=== PATIENT | female | born 1990 | race Caucasian/White ===

== ENCOUNTER 2016-10-07 20:20 | Emergency (ER) | payer MEDICAID ==
--- NOTE | 2016-10-07 20:33 | ED Physician Chart ---
Chief Complaint/HPI - Patient Information Date Seen:: 10/07/16 Time Seen:: 20:21 Chief Complaint:: knee pain History of Present Illness:: 26-year-old female, otherwise healthy, complains of acute, constant, moderate, aching, worse with movement, nonradiating, 6 out of 10, right knee pain 2 days. Says she feels like it needs to "pop". Denies any injury, fevers, chills , palpitations, chest pain, abdominal pain, nausea, vomiting. Allergies:: Allergies Allergy/AdvReac Type Severity Reaction Status Date / Time No Known Allergies Allergy Verified 04/09/16 09:17 Historian:: Patient Review:: Nurse's Note Reviewed Review of Systems - Review of Systems Other: Complete system review otherwise unremarkable except as noted in history of present illness. Past Medical History - Past Medical History Past Medical History: No significant medical hx Family History: None Social History: Non Smoker, No Alcohol, No Drug Use, Other (lives with family) Surgical History: None Psychiatricy History: None Medication: None Family Medical History - Family Member Mother History Unknown: Yes Ethnicity: Physical Exam - Physical Examination Other:: INITIAL VITAL SIGNS: Reviewed by me GENERAL: Alert and interactive. No acute distress HEAD: Head is normocephalic and atraumatic EYES: EOMI. PERRL. No scleral icterus. No conjunctival injection ENT: Moist mucous membranes. NECK: Supple. No masses. Full range of motion RESPIRATORY: No tachypnea. Clear breath sounds bilaterally. No wheezing, rales, or rhonchi CV: Regular rate and rhythm. No murmurs, rubs, or gallops ABDOMEN: Soft, non-distended, non-tender. No guarding. No rebound. No masses. EXTREMITIES: No deformity. No cyanosis. No edema. Right knee has some limited range of motion on extreme flexion and hyperextension. There is some crepitation on patellar tracking. SKIN: Warm and dry. No obvious rashes. NEUROLOGIC: Alert and oriented. Face is symmetric. Speech is normal. Moves all extremities equally. Motor and sensory distally intact. Labs/Radiology/EKG Results - Radiology Results Results: X-ray right Knee 3V Interpreted by me: Bones: No fracture Joints: No dislocation Foreign body: None ED Septic Shock - . Is Septic Shock (SBP<90, OR Lactate>4 mmol\\L) present?: No Reassessment (Disposition) - Reassessment Reassessment:: Blood pressure was noted to be elevated over 120/80. There were no signs of hypertension. Discussed the findings with the patient and recommended that the patient follow up with the primary care physician regarding the elevated blood pressure. 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 There is crepitation on patellar tracking of the right knee. No acute injury noted. Labs essentially unremarkable. Discussed exercises for strengthening quadriceps. Provided Garth wrap. Found some support relief. Recommend follow- up PCP. Return to ER precautions given. Patient understands and agrees with the plan. Reassessment Condition:: Improved - Diagnosis Diagnosis:: Acute femoral patellar syndrome, right knee Acute urinary tract infection without hematuria Elevated blood pressure without diagnosis of hypertension - Aftercare/Follow up Instructions Aftercare/Follow-Up Instructions:: Counseled pt regarding lab results/diagnosis & need follow up, Refer to Discharge Instructions - Patient Disposition Discharge/Transfer:: Home Condition at Disposition:: Improved ED Discharge Plan - Patient Disposition Admit/Discharge/Transfer: PT DISCHARGED HOME Condition at Disposition: Improved Instructions: Knee Exercises, Generic, SportsMed Additional Instructions: May need MRI if symptoms continue.
[2016-10-07 21:09] LABS: % BASOPHILS 0.3 % (0.0-2.0); % EOSINOPHILS 1.9 % (0.0-5.0); % MONOCYTES 6.9 % (2.0-10.0); % NEUTROPHILS 72.9 % (40.0-80.0); HEMATOCRIT 34.5 % (35.0-45.0); HEMOGLOBIN 11.4 gm/dL (11.7-15.5); MEAN CELL VOLUME 80.3 fl (81-100); MEAN CORPUSCULAR HEMOGLOBIN 26.6 pg (27.0-31.0); MEAN CORPUSCULAR HGB CONC 33.1 pg (28.0-36.0); MEAN PLATELET VOLUME 8.4 fl; NEUTROPHILE ABSOLUTE 9.1 Th/cmm (1.8-8.0); PLATELET COUNT 343 Th/cmm (150-400); RED CELL DISTRIBUTION WIDTH 14.1 % (11.5-20.0)
[2016-10-07 21:14] LABS: WHITE BLOOD COUNT 12.3 Th/cmm (4.8-10.8)
[2016-10-07 21:22] LABS: ANION GAP 2.1 (7.0-16.0); BUN - UREA NITROGEN 16 mg/dL (7-25); CALCIUM SERUM 8.9 mg/dL (8.6-10.3); CARBON DIOXIDE 27.7 mEq/L (21.0-31.0); CHLORIDE 108 mEq/L (98-107); CREATININE - SERUM 0.8 mg/dL (0.6-1.2); GLUCOSE 107 mg/dL (70-105); POTASSIUM SERUM 3.8 mEq/L (3.5-5.1); SODIUM SERUM 134 mEq/L (136-145); URIC ACID 3.9 mg/dL (2.3-6.6)
[2016-10-07 21:58] LABS: URINE COLOR YELLOW
[2016-10-07 21:59] LABS: URINE BACTERIA MANY /hpf (NONE SEEN); URINE BILIRUBIN NEGATIVE (NEGATIVE); URINE BLOOD NEGATIVE (NEGATIVE); URINE EPITHELIAL CELLS MODERATE /lpf (FEW); URINE GLUCOSE (UA) NEGATIVE (NEGATIVE); URINE KETONE TRACE mg/dL (NEGATIVE); URINE PROTEIN 30 mg/dL (NEGATIVE); URINE RBC 0-2 /hpf (0-5); URINE UROBILINOGEN 0.2 E.U./dL (0.2 - 1.0)
[2016-10-07 22:00] LABS: URINE WBC 25-50 /hpf (0-5)
--- NOTE | 2016-10-08 09:12 | Diagnostic Imaging Report ---
INDICATION: Pain FINDINGS: No fractures or dislocations. No erosions or periosteal reaction. Articular surfaces are smooth. No joint effusion. IMPRESSION: No acute bony pathology.[.]
== END 2016-10-07 22:10 | disposition home or self-care (01) ==
LOC: ER 20:20
DX: M25.861 Other specified joint disorders, right knee (principal); N39.0 Urinary tract infection, site not specified; R03.0 Elevated blood-pressure reading, without diagnosis of hypertension
CPT/HCPCS: 36415-UA; 73562-TC-RT; 80048-TC; 81001-TC; 83605; 84550-TC; 85025-TC; 87086-90

== ENCOUNTER 2017-01-03 20:34 | Emergency (ER) | payer MEDICAID ==
[2017-01-03] MEDS ORDERED: Sodium Chloride 0.9% 1,000 ML IV ONE (21:00)
--- NOTE | 2017-01-03 21:06 | ED Physician Chart ---
Chief Complaint/HPI - Patient Information Date Seen:: 01/03/17 Time Seen:: 20:35 Chief Complaint:: Abdominal Pain History of Present Illness:: onset x 4 days of intermittent, crampy, epigastric Abd. pain, N/V/D, fever; no A /C, C/P, SOB, cough, melena, hematemesis, hematochezia, or urinary s/s Allergies:: Allergies Allergy/AdvReac Type Severity Reaction Status Date / Time No Known Allergies Allergy Verified 01/03/17 20:47 Vitals:: Vital Signs - 8 hr 01/03/17 20:35 Temp 98.3 F HR 120 RR 16 BP 156/80 O2 Sat % 99 Historian:: Patient, Family Member Review:: Nurse's Note Reviewed Review of Systems - Review of Systems General/Constitutional: Fever, Chills, No weight loss, No weakness, No diaphoresis, No edema, No loss of appetite Skin: No skin lesions, No rash, No bruising Head: No headache, No light-headedness Eyes: No loss of vision, No pain, No diplopia ENT: No earache, No nasal drainage, No sore throat, No tinnitus Neck: No neck pain, No swelling, No thyromegaly, No stiffness, No mass noted Cardio Vascular: No chest pain, No palpitations, No PND, No orthopnea, No edema Pulmonary: No SOB, No cough, No sputum, No wheezing GI: Nausea, Vomiting, Diarrhea, Pain, No melena, No hematochezia, Constipation, No hematemesis G/U: No dysuria, No frequency, No hematuria 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, No abnormal vaginal bleed, No contraction Musculoskeletal: No bone or joint pain, No back pain, No muscle pain Endocrine: No polyuria, No polydipsia Psychiatric: No prior psych history, No depression, No anxiety, No suicidal ideation Hematopoietic: No bruising, No lymphadenopathy Allergic/Immuno: No urticaria, No angioedema Neurological: No syncope, No focal symptoms, No weakness, No paresthesia, No headache, No seizure, No dizziness, No confusion, No vertigo Past Medical History - Past Medical History Obtainable: Yes Past Medical History: PUD/GERD, Other (Anxiety) Family History: HTN Social History: Non Smoker, No Alcohol, No Drug Use, Single Surgical History: Cholecystectomy Psychiatricy History: Other (Anxiety Reaction) Medication: Reviewed Family Medical History - Family Member Mother History Unknown: Yes Ethnicity: Physical Exam - Physical Examination General/Constitutional: Awake, Well-developed, well-nourished, Alert, No distress, GCS 15, Non-toxic appearing, Ambulatory Head: Atraumatic Eyes: Lids, conjuctiva normal, PERRL, EOMI Skin: Nl inspection, No rash, No skin lesions, No ecchymosis, Well hydrated, No lymphadenopathy ENMT: External ears, nose nl, Nasal exam nl, Lips, teeth, gums nl Neck: Nontender, Full ROM w/o pain, No JVD, No nuchal rigidity, No bruit, No mass, No stridor Respiratory: Nl effort/Exclusion, Clear to Auscultation, No Wheeze/Rhonchi/Rales Cardio Vascular: RRR, No murmur, gallop, rubs, NL S1 S2 GI: No tenderness/rebounding/guarding, No organomegaly, No hernia, Normal BS's, Nondistended, No mass/bruits, No McBurney tenderness : No CVA tenderness Extremities: No tenderness or effusion, Full ROM, normal strength in all extremities, No edema, Normal digits & nails Neuro/Psych: Alert/oriented, DTR's symmetric, Normal sensory exam, Normal motor strength, Judgement/insight normal, Mood normal, Normal gait, No focal deficits Misc: normal gait, Normal back, No paraspinal tenderness Labs/Radiology/EKG Results - Lab Results Results: WBC: 14.1; Test: Negative - Radiology Results Results: NAD - EKG Interpretations EKG Time:: 21:13 Rate & Rhythm: 111; ST Comments:: non-specific st-t changes ED Septic Shock - . Is Septic Shock (SBP<90, OR Lactate>4 mmol\L) present?: No - <6hrs of presentation: Vital Signs: Vital Signs - 8 hr 01/03/17 20:35 Temp 98.3 F HR 120 RR 16 BP 156/80 O2 Sat % 99 Reassessment (Disposition) - Reassessment Reassessment:: pt tolerated po fluids well in ER; pt is asymptomatic upon discharge Reassessment Condition:: Improved - Diagnosis Diagnosis:: Abdominal Pain; Vomiting/Diarrhea; Gastritis; AGE; Fever; Gastroenteritis - Aftercare/Follow up Instructions Aftercare/Follow-Up Instructions:: Counseled pt regarding lab results/diagnosis & need follow up, Refer to Discharge Instructions, Counseled pt & family regarding lab results/diagnosis & need follow up Medication Prescribed:: Rx: Compazine 5mg po tid prn N/V (6) - Patient Disposition Discharge/Transfer:: Home Condition at Disposition:: Stable, Improved (RTER prn if existing s/s reoccur and/or get worse and/or any other new s/s occur; X-Rays Instructions; ACIs given for all Dx; Clear Liquids; Fluids; Refer to GI Specialist/Composition Weatherboard Applier CAM; F/U with PMD in one day or prn; RTER prn if concerned)
[2017-01-03 21:27] LABS: % EOSINOPHILS 0.8 % (0.0-5.0); % LYMPHOCYTES 16.8 % (20.0-50.0); % MONOCYTES 2.7 % (2.0-10.0); % NEUTROPHILS 79.7 % (40.0-80.0); HEMATOCRIT 36.7 % (35.0-45.0); HEMOGLOBIN 11.9 gm/dL (11.7-15.5); MEAN CELL VOLUME 80.6 fl (81-100); MEAN CORPUSCULAR HEMOGLOBIN 26.1 pg (27.0-31.0); MEAN CORPUSCULAR HGB CONC 32.4 pg (28.0-36.0); MEAN PLATELET VOLUME 9.1 fl; NEUTROPHILE ABSOLUTE 11.2 Th/cmm (1.8-8.0); PLATELET COUNT 361 Th/cmm (150-400); RED BLOOD COUNT 4.55 Mil/cmm (3.80-5.10); RED CELL DISTRIBUTION WIDTH 15.3 % (11.5-20.0)
[2017-01-03 21:37] LABS: ALKALINE PHOSPHATASE 122 U/L (34-104); ANION GAP 10.1 (7.0-16.0); BILIRUBIN,TOTAL 0.4 mg/dL (0.3-1.0); BUN - UREA NITROGEN 10 mg/dL (7-25); BUN/CREATININE RATIO 12.5; CALCIUM SERUM 9.3 mg/dL (8.6-10.3); CARBON DIOXIDE 25.5 mEq/L (21.0-31.0); CHLORIDE 104 mEq/L (98-107); CHOLESTEROL 117 mg/dL (<200); CREATININE - SERUM 0.8 mg/dL (0.6-1.2); GLUCOSE 98 mg/dL (70-105); POTASSIUM SERUM 3.6 mEq/L (3.5-5.1); SGOT 25 U/L (13-39); SGPT/ALT 39 U/L (7-52); SODIUM SERUM 136 mEq/L (136-145); TRIGLYCERIDES 115 mg/dL (<150); TROP I < 0.01 ng/mL (0.01-0.05)
[2017-01-03 21:42] LABS: AMYLASE SERUM 40 U/L (29-103); LIPASE 24 U/L (11-82)
[2017-01-03 21:43] LABS: INR 0.94 (0.5-1.4); PROTHROMBIN TIME (TEST) 9.8 SECONDS (9.5-11.5)
[2017-01-03 21:45] LABS: WHITE BLOOD COUNT 14.1 Th/cmm (4.8-10.8)
[2017-01-03 21:49] LABS: BNP 9.1 pg/mL (5.0-100.0)
[2017-01-03 23:32] LABS: URINE BILIRUBIN NEGATIVE (NEGATIVE); URINE BLOOD NEGATIVE (NEGATIVE); URINE COLOR YELLOW; URINE GLUCOSE (UA) NEGATIVE (NEGATIVE); URINE KETONE NEGATIVE (NEGATIVE); URINE PH 7.5; URINE PROTEIN NEGATIVE (NEGATIVE); URINE UROBILINOGEN 0.2 E.U./dL (0.2 - 1.0)
[2017-01-03 23:33] LABS: URINE BACTERIA NONE SEEN /hpf (NONE SEEN); URINE EPITHELIAL CELLS NONE SEEN /lpf (FEW); URINE RBC NONE SEEN /hpf (0-5); URINE WBC NONE SEEN /hpf (0-5)
[2017-01-03] MEDS ORDERED: IOHEXOL 300MG/ML 100 ML VIAL ONE (23:56)
--- NOTE | 2017-01-04 10:59 | Diagnostic Imaging Report ---
Exam: CT examination abdomen pelvis. HISTORY: Abdominal pain Total DLP equals 816 CTDI equals 15.8 Findings:. Multiple contiguous thin section of the abdomen pelvis obtained from lower thorax to the pubic symphysis without the administration of oral contrast material. Intravenous contrast was utilized. No prior studies available for comparison. The study demonstrates normal aeration of lung parenchyma the bases. The liver and spleen intact. The adrenal glands are normal. The pancreas is normal. The gallbladder is not visualized. The kidneys concentrate and excrete contrast material normal fashion. No free fluid is noted. There is evidence for enlarged shaft fibroid uterus question ovarian cyst ultrasound examination of pelvis might helpful. The urinary bladder is intact. Bony structures demonstrate no evidence for lytic or blastic changes. IMPRESSION: 1. Somewhat prominent liver parenchyma. 2. Nonvisualized gallbladder 3. The common bile duct somewhat prominent the 6 mm clinical correlation ultrasound examination of the gallbladder is recommended. 4. Enlarged uterus question fibroid infiltration with a questionable right adnexal cyst ultrasound examination recommended
== END 2017-01-04 01:40 | disposition home or self-care (01) ==
LOC: ER 20:34
DX: K52.9 Noninfective gastroenteritis and colitis, unspecified (principal); K21.9 Gastro-esophageal reflux disease without esophagitis; Z90.49 Acquired absence of other specified parts of digestive tract
CPT/HCPCS: 99285; 74177; 96361; 96376; 93005; 84484; 83880; 36415; 83605; 85025; 85610; 81001; 82150; 82550; 84703; 81025; 83690; 80053; 80061; 87040; 96374; J2405 ×2; J7030; Q9967

== ENCOUNTER 2018-04-16 11:21 | Emergency (ER) | payer MEDICAID ==
--- NOTE | 2018-04-16 14:05 | Diagnostic Imaging Report ---
Bilateral lower extremity DVT study HISTORY: Pain COMPARISON: None Technique: Longitudinal and transverse sonographic images of the bilateral lower extremity veins were obtained with doppler analysis. FINDINGS: There is normal compressibility, augmentation and phasicity of the bilateral common femoral, superficial femoral, popliteal, and posterior tibial veins. No thrombus is visualized. IMPRESSION: No evidence of thrombus within the bilateral lower extremity veins.
--- NOTE | 2018-04-16 16:18 | ED Physician Chart ---
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 Pain, flank pain, pelvic pain, weakness, dizziness, paresthesias, vertigo, visual or gait changes, A/N/V/D/C, fever, chills, bleeding, or urinary s/s; LNMP: 04/12/18; pt denies ; pt's last tetanus shot: < 5 years; Hx of chronic LBP Allergies:: Allergies Allergy/AdvReac Type Severity Reaction Status Date / Time No Known Allergies Allergy Verified 04/28/17 01:55 Vitals:: Vital Signs - 8 hr 04/16/18 04/16/18 11:32 12:50 Temp 97.8 F 97.8 F HR 102 98 RR 19 16 BP 152/86 148/86 O2 Sat % 98 99 Historian:: Patient, Family Member Review:: Nurse's Note Reviewed ED Review of Systems - Review of Systems General/Constitutional: No fever, No chills, No weight loss, No weakness, No diaphoresis, No edema, No loss of appetite Skin: No skin lesions, No rash, No bruising Head: No headache, No light-headedness Eyes: No loss of vision, No pain, No diplopia ENT: No earache, No nasal drainage, No sore throat, No tinnitus Neck: No neck pain, No swelling, No thyromegaly, No stiffness, No mass noted Cardio Vascular: No chest pain, No palpitations, No PND, No orthopnea, No edema Pulmonary: No SOB, No cough, No sputum, No wheezing GI: No nausea, No vomiting, No diarrhea, No pain, No melena, No hematochezia, No constipation, No hematemesis G/U: No dysuria, No frequency, No hematuria, No 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, No abnormal vaginal bleed, No contraction Musculoskeletal: Bone or joint pain, Back pain, Muscle pain Endocrine: No polyuria, No polydipsia Psychiatric: No prior psych history, No depression, No anxiety, No suicidal ideation, No homicidal ideation, No auditory hallucination, No visual hallucination Hematopoietic: No bruising, No lymphadenopathy Allergic/Immuno: No urticaria, No angioedema Neurological: No syncope, No focal symptoms, No weakness, No paresthesia, No headache, No seizure, No dizziness, No confusion, No vertigo ED Past Medical History - Past Medical History Obtainable: Yes Past Medical History: No significant medical hx Family History: Diabetes Melitus Social History: Non Smoker, No Alcohol, No Drug Use, Surgical History: Cholecystectomy Psychiatricy History: None Medication: Reviewed Family Medical History - Family Member Mother History Unknown: Yes Ethnicity: ED Physical Exam - Physical Examination General/Constitutional: Awake, Well-developed, well-nourished, Alert, No distress, GCS 15, Non-toxic appearing, Ambulatory Head: Atraumatic Eyes: Lids, conjuctiva normal, PERRL, EOMI Skin: Nl inspection, No rash, No skin lesions, No ecchymosis, Well hydrated, No lymphadenopathy ENMT: External ears, nose nl, TM canals nl, Nasal exam nl, Lips, teeth, gums nl , Oropharynx nl, Tonsils nl Neck: Nontender, Full ROM w/o pain, No JVD, No nuchal rigidity, No bruit, No mass, No stridor Other Neck comments:: supple; no meningeal signs; no cervical tenderness; no bruits Respiratory: Nl effort/Exclusion, Clear to Auscultation, No Wheeze/Rhonchi/Rales Cardio Vascular: RRR, No murmur, gallop, rubs, NL S1 S2, Carotid/Femoral/Distal pulses equal bilaterally GI: No tenderness/rebounding/guarding, No organomegaly, No hernia, Normal BS's, Nondistended, No mass/bruits, No McBurney tenderness Other GI comments:: no pulsatile masses : No CVA tenderness Extremities: No tenderness or effusion, Full ROM, normal strength in all extremities, No edema, Normal digits & nails Other Extremities comments:: Left Thigh Tenderness; no loss of ROMs; full active ROMs; no septic joints; no joint tenderness; DTRs: 2+ bilaterally; Gait: WNL; no ligament instability; good motor, tendon, and sensory functions; good NV functions Neuro/Psych: Alert/oriented, DTR's symmetric, Normal sensory exam, Normal motor strength, Judgement/insight normal, Mood normal, Normal gait, No focal deficits Other Neuro/Psych comments:: no focal signs Misc: Normal back, No paraspinal tenderness ED Labs/Radiology/EKG Results - Lab Results Results: Laboratory Tests 04/16/18 12:48 POC Glucose 103 Comments:: Reviewed - Radiology Results Comments:: U/S: no DVT; NAD ED Septic Shock - . Is Septic Shock (SBP<90, OR Lactate>4 mmol\L) present?: No - <6hrs of presentation: Vital Signs: Vital Signs - 8 hr 04/16/18 04/16/18 11:32 12:50 Temp 97.8 F 97.8 F HR 102 98 RR 19 16 BP 152/86 148/86 O2 Sat % 98 99 ED Reassessment (Disposition) - Reassessment Reassessment:: pt is asymptomatic upon discharge Reassessment Condition:: Improved - Diagnosis Diagnosis:: Left Thigh Pain; Left Femoral Sprains and Strains; Low Back Pain; Chronic LBP; L -S Strain; Sciatica; Chronic Pain - Aftercare/Follow up Instructions Aftercare/Follow-Up Instructions:: Counseled pt regarding lab results/diagnosis & need follow up, Refer to Discharge Instructions, Counseled pt & family regarding lab results/diagnosis & need follow up Medication Prescribed:: RTER prn if existing s/s reoccur and/or get worse and/or any other new s/s occur ; U/S Care Instructions; Refer to Spinal Specialist/Orthopedist/Neurologist/ Pet Sitting CAM; F/U with PMD in one day or prn; RTER prn if concerned - Patient Disposition Discharge/Transfer:: Home Condition at Disposition:: Stable, Improved
== END 2018-04-16 12:58 | disposition home or self-care (01) ==
LOC: ER 11:21
DX: S73.102A Unspecified sprain of left hip, initial encounter (principal); S76.912A Strain of unspecified muscles, fascia and tendons at thigh level, left thigh, initial encounter; S39.012A Strain of muscle, fascia and tendon of lower back, initial encounter; M54.40 Lumbago with sciatica, unspecified side; G89.29 Other chronic pain; Z90.49 Acquired absence of other specified parts of digestive tract; X58.XXXA Exposure to other specified factors, initial encounter; Y93.89 Activity, other specified; Y92.89 Other specified places as the place of occurrence of the external cause; Y99.8 Other external cause status
CPT/HCPCS: 82948-90; 93970-TC-50; Z7502

== ENCOUNTER 2018-08-22 12:09 | Emergency (ER) | payer MEDICAID ==
--- NOTE | 2018-08-22 13:01 | ED Physician Chart ---
ED Chief Complaint/HPI - Patient Information Date Seen:: 08/22/18 Time Seen:: 12:50 Chief Complaint:: sore throat and earache History of Present Illness:: Patient developed sore throat 2-3 days ago. She has had bilateral earache for one day. She did not take her temperature but she has felt warm and been diaphoretic. No recent cough. Allergies:: Allergies Allergy/AdvReac Type Severity Reaction Status Date / Time No Known Allergies Allergy Verified 08/22/18 12:28 Vitals:: Vital Signs - 8 hr 08/22/18 12:28 Temp 99.4 F HR 107 RR 18 BP 95/51 O2 Sat % 96 Historian:: Patient Review:: Nurse's Note Reviewed ED Review of Systems - Review of Systems General/Constitutional: Fever, Chills Skin: No skin lesions Head: No headache Eyes: No loss of vision ENT: Earache, Sore throat Neck: No neck pain, No swelling Cardio Vascular: No chest pain, No palpitations Pulmonary: No SOB, No cough GI: No nausea, No vomiting, No diarrhea Musculoskeletal: No bone or joint pain Endocrine: No polyuria Psychiatric: No prior psych history, No depression, No anxiety Hematopoietic: No bruising Allergic/Immuno: No urticaria Neurological: No syncope Family Medical History - Family Member Mother History Unknown: Yes Ethnicity: ED Physical Exam - Physical Examination General/Constitutional: Awake, Well-developed, well-nourished, Alert, No distress, GCS 15, Non-toxic appearing, Ambulatory Head: Atraumatic Eyes: Lids, conjuctiva normal, PERRL, EOMI Skin: Nl inspection, No rash, No skin lesions, No ecchymosis, Well hydrated, No lymphadenopathy ENMT: External ears, nose nl, Nasal exam nl, Lips, teeth, gums nl Other ENMT comments:: Tonsils slightly enlarged with minimal exudate and minimal increased erythema Neck: Nontender, No JVD, No nuchal rigidity, No bruit, No mass, No stridor Other Neck comments:: No laryngeal tenderness Respiratory: Nl effort/Exclusion, Clear to Auscultation, No Wheeze/Rhonchi/Rales Cardio Vascular: RRR, No murmur, gallop, rubs, NL S1 S2 GI: No tenderness/rebounding/guarding, No organomegaly, No hernia, Normal BS's, Nondistended, No mass/bruits, No McBurney tenderness : No CVA tenderness Extremities: No tenderness or effusion, Full ROM, normal strength in all extremities, No edema, Normal digits & nails Neuro/Psych: Alert/oriented, DTR's symmetric, Normal sensory exam, Normal motor strength, Judgement/insight normal, Mood normal, Normal gait, No focal deficits Misc: Normal back, No paraspinal tenderness ED Assessment - Assessment General Assessment: Patient has pharyngitis but she does not have mononucleosis as her lymphocyte count is only 14.7%. ED Septic Shock - . Is Septic Shock (SBP<90, OR Lactate>4 mmol\L) present?: No - <6hrs of presentation: Vital Signs: Vital Signs - 8 hr 08/22/18 12:28 Temp 99.4 F HR 107 RR 18 BP 95/51 O2 Sat % 96 ED Reassessment (Disposition) - Reassessment Reassessment Condition:: Unchanged - Diagnosis Diagnosis:: Pharyngitis - Aftercare/Follow up Instructions Medication Prescribed:: Amoxicillin 500 mg 3 times a day for one week - Patient Disposition Discharge/Transfer:: Home Condition at Disposition:: Stable, Unchanged
[2018-08-22 13:19] LABS: % BASOPHILS 0.3 % (0.0-2.0); % EOSINOPHILS 2.3 % (0.0-5.0); % LYMPHOCYTES 14.7 % (20.0-50.0); % MONOCYTES 5.6 % (2.0-10.0); % NEUTROPHILS 77.1 % (40.0-80.0); EOSINOPHILE ABSOLUTE 0.3 Th/cmm (0.1-0.4); HEMATOCRIT 35.2 % (41.0-60); HEMOGLOBIN 11.5 gm/dL (12-16); LYMPHOCYTE ABSOLUTE 1.9 Th/cmm (1.5-3.0); MEAN CELL VOLUME 80.2 fl (81-100); MEAN CORPUSCULAR HEMOGLOBIN 26.1 pg (27.0-31.0); MEAN CORPUSCULAR HGB CONC 32.5 pg (28.0-36.0); MONOCYTE ABSOLUTE 0.7 Th/cmm (0.3-1.0); PLATELET COUNT 418 Th/cmm (150-400); RED BLOOD COUNT 4.39 Mil/cmm (3.80-5.10); RED CELL DISTRIBUTION WIDTH 14.9 % (11.5-20.0); WHITE BLOOD COUNT 12.9 Th/cmm (4.8-10.8)
== END 2018-08-22 14:00 | disposition home or self-care (01) ==
LOC: ER 12:09
DX: J02.9 Acute pharyngitis, unspecified (principal); H92.03 Otalgia, bilateral
CPT/HCPCS: 36415-UA; 85025-TC; Z7502